=== PATIENT | male | born 1980 | race African-American/Black ===

== ENCOUNTER 2022-03-26 13:35 | Emergency (ER) | payer SELFPAY | END 2022-03-26 15:00 | disposition home or self-care (01) | LOC: CSHERS 13:35 | DX: T78.3XXA Angioneurotic edema, initial encounter (principal); I10 Essential (primary) hypertension | CPT/HCPCS: 99283 ==

== ENCOUNTER 2022-07-17 17:22 | Emergency (ER) | payer SELFPAY | END 2022-07-17 18:54 | disposition home or self-care (01) | LOC: CSHERS 17:22 | DX: R60.0 Localized edema (principal); I10 Essential (primary) hypertension ==